=== PATIENT | male | born 1940 | race Caucasian/White ===

== ENCOUNTER 2019-01-20 13:39 | Emergency (ER) | payer MEDICARE, OTHER ==
--- NOTE | 2019-01-20 14:00 | UC ---
Nausea/Vomiting/Diarrhea HPI - HPI Summary HPI Summary: Patient is a 78yo male presenting with diarrhea x3 days and nausea, diaphoresis , and GERD symptoms since this morning. Patient states he was at a this morning when he began to feel lightheaded, sweaty, and nauseous. Patient and his girlfriend were concerned for a stroke or heart attack so he came here. He notes watery stools that alternate with solid stools for the past 3 days. Denies abdominal pain. Denies blood in stool. Denies changes in appetite. Notes balanced diet with plenty of fiber. Admits to not drinking enough fluids the past few days. Notes he tried taking apple cider vinegar this morning because his girlfriend does. Denies other diet changes or GI disorders. Denies urinary symptoms. Denies vomiting. Notes nausea and diaphoresis have resolved since this morning. Denies LOC. Denies headache, fever, and chills. Denies SOB and cough. Notes burning in chest from his GERD that has mostly resolved and feels better when lying back. He denies chest pain. Denies changes in vision and hearing. Denies weakness in arms or legs. Denies family history of NH or heart disease. Patient became emotional, crying because he notes his sister two months ago from bladder cancer. He notes anxiety and upset about this while at the this morning. - History of Current Complaint Chief Complaint: UCGI Stated Complaint: DIARRHEA NAUSEA Hx Obtained From: Patient Pain Intensity: 3 Pain Scale Used: 0-10 Numeric - Allergies/Home Medications Allergies/Adverse Reactions: Allergies Allergy/AdvReac Type Severity Reaction Status Date / Time No Known Allergies Allergy Verified 01/20/19 13:56 Home Medications: Home Medications Allopurinol TAB* [Zyloprim 100 MG TAB*] 100 mg PO DAILY 01/20/19 [History Confirmed 01/20/19] Omeprazole 20 mg PO DAILY 01/20/19 [History Confirmed 01/20/19] PMH/Surg Hx/FS Hx/Imm Hx - Additional Past Medical History Additional PMH: Gout Previously Healthy: Yes GI/ History: Gastroesophageal Reflux - Surgical History Surgical History: None Surgery Procedure, Year, and Place: prostate removed - Family History Known Family History: Positive: None - Social History Alcohol Use: Weekly Substance Use Type: None Smoking Status (MU): Former Smoker Review of Systems All Other Systems Reviewed And Are Negative: Yes Constitutional: Positive: Negative, Other - diaphoresis. Negative: Fever, Chills, Fatigue Skin: Positive: Negative Eyes: Positive: Negative. Negative: Blurred Vision, Diplopia, Drainage, Eye Redness, Photophobia ENT: Positive: Negative. Negative: Sore Throat, Ear Ache, Nasal Discharge, Sinus Congestion Respiratory: Positive: Negative. Negative: Shortness Of Breath, Cough Cardiovascular: Positive: Negative. Negative: Palpitations, Chest Pain Gastrointestinal: Positive: Diarrhea. Negative: Abdominal Pain, Vomiting, Nausea Genitourinary: Positive: Negative Motor: Positive: Negative. Negative: Decreased ROM, Weakness Neurovascular: Positive: Negative. Negative: Decreased Sensation Musculoskeletal: Positive: Negative. Negative: Arthralgia, Calf Tenderness, Edema, Myalgia Neurological: Positive: Negative. Negative: Headache, Weakness, Paresthesia, Numbness Psychological: Positive: Anxious Physical Exam Triage Information Reviewed: Yes Appearance: Well-Appearing, No Pain Distress, Well-Nourished, Other: - Patient became emotional during exam and began crying Vital Signs: Initial Vital Signs Temp 97.8 F 01/20/19 13:51 Pulse 97 01/20/19 13:51 Resp 19 01/20/19 13:51 BP 133/89 01/20/19 13:51 Pulse Ox 99 01/20/19 13:51 Vital Signs Reviewed: Yes Eye Exam: Normal Eyes: Positive: Conjunctiva Clear, Other: - PERRLA. EOMI ENT Exam: Normal ENT: Positive: Hearing grossly normal, Pharynx normal, TMs normal, Uvula midline. Negative: Trismus, Muffled voice, Hoarse voice, Sinus tenderness Neck exam: Normal Neck: Positive: Supple, Nontender, No Lymphadenopathy Respiratory Exam: Normal Respiratory: Positive: Chest non-tender, Lungs clear, Normal breath sounds, No respiratory distress, No accessory muscle use. Negative: Crackles, Rhonchi, Stridor, Wheezing Cardiovascular Exam: Normal Cardiovascular: Positive: RRR, No Murmur, Pulses Normal, Brisk Capillary Refill. Negative: Tachycardia, Bradycardia Abdominal Exam: Normal Abdomen Description: Positive: Nontender, No Organomegaly, Soft. Negative: Distended, Guarding, Hepatomegaly, McBurney's Point Tenderness, Peritoneal Signs , Pulsatile Mass, Splenomegaly Bowel Sounds: Positive: Present Musculoskeletal Exam: Normal Musculoskeletal: Positive: Strength Intact, ROM Intact, No Edema Neurological Exam: Normal, Other - Cranial nerves II-XII intact. Negative Romberg and [id number] tests Neurological: Positive: Alert, Muscle Tone Normal Psychological Exam: Normal Psychological: Positive: Age Appropriate Behavior, Consolable - patient began crying when EKG was normal, Other: Skin Exam: Normal Diagnostics - EKG Cardiac Rate: NL Cardiac Rhythm: Sinus: Normal Ectopy: None ST Segment: Normal Naus/Vom/Diarrhea Course/Dx - Course Course Of Treatment: Patient's EKG read as normal sinus rhythm and reviewed by Dr. Ball as well. Patient had normal neuro exam, was in no pain distress, and had normal VS during visit. No pain or respiratory distress. Patient was crying when told his EKG was normal. He note his sister recently and he has had anxiety and been upset ever since. Noted increased anxiety over his sister's passing while at the today. He also admitted to not drinking enough fluids while diarrhea has been present. Patient's GERD symptoms resolved while here. Denied any pain throughout PE. Discussed with patient signs and symptoms of heart attack, stroke, and worsening abdominal pain and diarrhea. Instructed patient to drink fluids, eat fiber, and follow up with PCP if symptoms persist. Instructed him to go to ED if symptoms worsen. Patient voiced understanding, relief, and agreed to the plan. - Differential Dx/Diagnosis Provider Diagnosis: GERD (gastroesophageal reflux disease), Acute diarrhea Condition At Discharge: Stable Discharge ED - Sign-Out/Discharge Documenting (check all that apply): Patient Departure All imaging exams completed and their final reports reviewed: No Studies - Discharge Plan Condition: Stable Disposition: HOME Patient Education Materials: Heart Attack (DC), Acute Diarrhea (ED) Referrals: Juliana CROWDER,Juan Irwin [Primary Care Provider] - As Soon As Possible Additional Instructions: As discussed, your EKG showed no signs of a heart attack or other abnormalities. Your diarrhea could be caused by something you ate, or a virus or bacteria. Be sure to drink plenty of fluids to avoid dehydration. Eat a balanced diet with plenty of fiber. Stop taking the apple cider vinegar. Be sure to attend your appointment with your PCP on Feb.14 Return or go to the emergency room if you experience nausea, vomiting, fever, severe chest or abdominal pain, excessive or persistent diarrhea, dizziness, shortness of breath, sweating, or weakness. - Billing Disposition and Condition Condition: STABLE Disposition: Home
== END 2019-01-20 14:48 | disposition home or self-care (01) ==
LOC: UCEAST 13:39
DX: K21.9 Gastro-esophageal reflux disease without esophagitis (principal); R19.7 Diarrhea, unspecified; M10.9 Gout, unspecified; Z87.891 Personal history of nicotine dependence
CPT/HCPCS: 93005; 99201; G0463